=== PATIENT | male | born 1955 ===

== ENCOUNTER 2017-05-27 10:55 | Outpatient (CLI) | payer OTHER | END 2017-05-27 11:15 | disposition home or self-care (01) | LOC: LAB 10:55 | DX: J11.1 Influenza due to unidentified influenza virus with other respiratory manifestations (principal) ==

== ENCOUNTER → 2020-02-21 10:01 | Outpatient (CLI) | payer OTHER | END | disposition home or self-care (01) | LOC: LAB 10:01 | PROVIDERS: ATTEND Urology | DX: R97.20 Elevated prostate specific antigen [PSA] (principal); N20.0 Calculus of kidney; I82.721 Chronic embolism and thrombosis of deep veins of right upper extremity ==

== ENCOUNTER → 2020-02-24 | Outpatient (CLI) | payer OTHER | END | disposition home or self-care (01) | LOC: TOM 07:15 | PROVIDERS: ATTEND Urology | DX: K40.90 Unilateral inguinal hernia, without obstruction or gangrene, not specified as recurrent (principal); R31.0 Gross hematuria ==

== ENCOUNTER 2020-04-03 10:04 | Outpatient (CLI) | payer OTHER | END 2020-04-03 10:08 | disposition home or self-care (01) | LOC: LAB 10:04 | PROVIDERS: ATTEND Radiology Diagnostic Radiology | DX: N20.0 Calculus of kidney (principal) ==

== ENCOUNTER 2020-04-05 08:36 | Outpatient (CLI) | payer OTHER | END 2020-04-05 08:53 | disposition home or self-care (01) | LOC: TOM 08:36 | PROVIDERS: ATTEND Urology | DX: K40.20 Bilateral inguinal hernia, without obstruction or gangrene, not specified as recurrent (principal); N17.8 Other acute kidney failure; R31.0 Gross hematuria; K57.90 Diverticulosis of intestine, part unspecified, without perforation or abscess without bleeding | CPT/HCPCS: 74177; Q9965 ==